=== PATIENT | female | born 1975 | race Caucasian/White ===

== ENCOUNTER 2017-05-29 00:16 | Emergency (ER) | payer BC, OTHER ==
[~2017-05-29] VITALS: Ht 162.6 cm; Wt 109.1 kg
[~2017-05-29 00:16] MED LIST: CLARITIN10 M6 PO; IBUPROFEN400 M1 PO; IRON; IRON SUPP; MULTIVITAMINS1 EAC6 PO; PERCOCET 5-3251 EACH PO; PREGESTERONE; PRENATAL1 TAB
[2017-05-29] MEDS ORDERED: VITAMIN B COMP1 EAC1 PO (00:31)
[2017-05-29] MEDS ORDERED: MAGNESIUM400 M1 PO (00:31)
[2017-05-29] MEDS ORDERED: CLARITIN10 M6 PO (00:31)
[2017-05-29] MEDS ORDERED: THERAPEUTIC-M1 EAC3 (00:31)
[2017-05-29 00:54] LABS: BASO % 0.7 % (0-2); BASO ABSOLUTE COUNT 0.1 tho/cmm (0.0-0.2); EOS % 3.9 % (0-7); EOSINOPHIL ABSOLUTE COUNT 0.3 tho/cmm (0.0-0.7); HCT-HEMATOCRIT 38.7 % (34.0-49.0); HGB-HEMOGLOBIN 13.1 gm/dl (12.0-15.5); IMMATURE GRANULOCYTES ABSOLUTE 0.01 tho/cmm (0-0.03); IMMATURE GRANULOCYTES PERCENT 0.1 % (0-0.3); LYMPH % 33.5 % (20-45); LYMPH ABSOLUTE COUNT 2.7 tho/cmm (0.8-4.5); MCH (MEAN CORPUSCULAR HGB) 28.9 pg (28.0-32.0); MCHC MEAN CORPUSCULAR HGB CONC 33.9 % (32.0-36.0); MCV (MEAN CELL VOLUME) 85.2 fl (82.0-96.0); MEAN PLATELET VOLUME 9.3 cmc (9.4-12.4); MONO % 8.1 % (0-12); MONOCYTE ABSOLUTE COUNT 0.7 tho/cmm (0.0-1.2); NEUTROPHIL ABSOLUTE COUNT 4.4 tho/cmm (1.6-8.0); NEUTROPHIL-AUTOMATED 4.4 tho/cmm (1.6-8.0); NEUTROPHILS % 53.7 % (40-80); PLATELET COUNT 293 tho/cmm (150-450); RED BLOOD COUNT 4.54 mil/cmm (4.00-5.20); RED CELL DISTRIBUTION WIDTH 13.6 % (12.4-16.4); WHITE BLOOD COUNT 8.1 tho/cmm (4.0-10.0)
[2017-05-29 01:10] LABS: ANION GAP 13 mmol/L (0-20); BLOOD UREA NITROGEN 14 mg/dl (6-24); CALCIUM 8.5 mg/dl (8.5-10.5); CARBON DIOXIDE-VENOUS 25 mmol/L (22-32); CHLORIDE 109 mmol/l (96-110); CREATININE 0.71 mg/dl (0.50-1.10); GLUCOSE 101 mg/dL (70-110); MAGNESIUM 2.3 mg/dl (1.8-2.6); POTASSIUM 3.6 mmol/L (3.7-5.1); SODIUM 143 mmol/L (135-145); eGFR VALUE FOR BLACK >90 mL/Min
[2017-05-29 01:12] LABS: TSH-THYROID STIMULATING HORM. 1.97 uIU/ml (0.40-3.80)
== END 2017-05-29 01:51 ==
LOC: EDMED → EDBD 00:16 → EDMED 00:16
PROVIDERS: Physician Assistant
DX: R00.2 Palpitations (principal)